=== PATIENT | male | born 1970 | race Caucasian/White ===

== ENCOUNTER → 2020-09-02 16:17 | Outpatient (BNVA) | payer OTHER, SELFPAY | PROVIDERS: PCP Nurse Practitioner Family; Visit Provider Anesthesiology | DX: M47.812 Spondylosis without myelopathy or radiculopathy, cervical region (principal); M54.12 Radiculopathy, cervical region; G89.4 Chronic pain syndrome | CPT/HCPCS: 99212 ==

== ENCOUNTER 2024-11-21 08:38 | Outpatient (AMB) | payer OTHER, SELFPAY ==
--- NOTE | 2024-11-21 09:11 | MHC.OFFVIS ---
Vital Signs 11/21/24 09:12 Weight 296 lb BP 157/74 H Blood Pressure Location Rt brachial Position Sitting Pulse 113 H Pulse Source Pulse Oximeter Pulse Oximetry (%) 98 Oxygen Delivery Method Room Air Intake Visit Reasons: Stimulator problems/Veren[employer] from [employer] Specialist Required: No Allergies duloxetine [From CYMBALTA] Allergy (Severe, Unverified 11/21/24 09:11) DIZZINESS - PASSED OUT latex [Latex] Allergy (Severe, Unverified 11/21/24 09:11) SWELLING,SOB,RASH methotrexate [METHOTREXATE] Allergy (Severe, Unverified 11/21/24 09:11) PANCREATIC DAMAGE oxcarbazepine [From TRILEPTAL] Allergy (Severe, Unverified 11/21/24 09:11) NA LEVELS DROPPED beeswax [BEESWAX] Allergy (Intermediate, Unverified 11/21/24 09:11) SWELLING, DIFFICULTY BREATHING lamotrigine [From Lamictal] Allergy (Intermediate, Unverified 11/21/24 09:11) OPEN OOZING RASH tiotropium [From SPIRIVA WITH HANDIHALER] Allergy (Intermediate, Unverified 11/21/24 09:11) INFLAMMATION OF PROSTATE sertraline [From ZOLOFT] Allergy (Unknown, Unverified 11/21/24 09:11) UNKNOWN bee sting Allergy (Unknown, Uncoded 11/21/24 09:11) anaphylaxis Latex Allergy (Unknown, Uncoded 11/21/24 09:11) swelling, breathing problems Latex Gloves Allergy (Unknown, Uncoded 11/21/24 09:11) Rash,Swelling Medication List - Last Reconciled 11/21/24 by Susie Cruz, TIRE [employer]SEMBLER aspirin 81 mg PO DAILY atorvastatin mg PO cyclobenzaprine 10 mg PO TID 30 days hydroxyzine HCl 0 mg PO magnesium oxide 400 mg PO DAILY pantoprazole 40 mg PO DAILY HPI Comments Details: Yamil is in my office after 5 years of absence. This is very unfortunate gentleman who was treated in my office in 2021 with spinal cord stimulator cervical positioned. The patient had 80% or better pain relief at the time of the implantation. He enjoyed significant help from spinal cord stimulation device [employer] until 2021 when he had the stroke. He had prolonged rehab stay after this and spinal cord stimulator was not charged during that time. After that in 2022 he had the COVID his spent long time and I see you in critical condition. He had very low potassium. He had an episode of congestive heart failure in March of 2024. The patient now is getting better and he wants spinal cord stimulator to be restarted. Maryann the congressional representative of the [employer] is was patient today to charge she spinal cord stimulator. I explained to him that due to all this severe and complicated conditions, movement and repositioning of the patient in different medical facilities his spinal cord stimulator leads could have dislodged. I will order him cervical spine x-ray just in case, if spinal cord stimulator is not helping him or if spinal cord stimulator causes stimulation of the anterior spinal cord with muscular stimulation in the arms or shoulders he would need to go for that x-ray. If the device is working for him and he feels as good as he was before he does not need to do anything continue to enjoy and recharge his battery. Prior: had cervical SCS trial done 11/01/19. he had an implant performed on [id number]% pain relief of his neck, shoulder, and arms without medications, and increased QOL and function. His ADL is improved his social interaction is improved his mobility is improved. Today he came in my office with complains on partial coverage. He was recommended to contact [employer] to work with his machine and try to expand the coverage without any interventions. [facility] Medical History (Updated 11/21/24 @ 09:27 by Gokul Cook MD) Chronic pain syndrome Cervical radiculopathy Facet arthropathy, cervical Review of Systems Const All systems reviewed & are unremarkable except as noted in HPI and below ENT Reports Normal hearing present Neuro Reports Normal hearing present, Denies confusion and Denies Sensory deficit (Neuro) Psych Denies confusion Physical Exam Vital Signs: Last Vital Signs Pulse 113 H 11/21/24 09:12 BP 157/74 H 11/21/24 09:12 Pulse Ox 98 11/21/24 09:12 Oxygen Delivery Method Room Air 11/21/24 09:12 Const General: No confusion Orientation/consciousness: No confusion Eyes Pupils: Equal, round and reactive pupils present EOM: EOMs intact bilaterally Neck Neck: No full ROM, Yes no meningeal signs and Yes trachea midline Chest Chest palpation & inspection: normal inspection of the chest Resp Effort & Inspection: normal respiratory effort, able to speak in complete sentences, normal respiratory pattern, no audible wheezes and no cough Cardio Jugular venous distension: no JVD Back/Spine/Pelvis Other: tenderness on palpation in Left paraspinal region cervical spine.. Range of motion is limited with the lateral tilting and lateral rotation of the neck.well-healed surgical scars b/l knees, full hip, knee, ankle ROM, no tenderness, swelling, or redness noted . EXTREMITIES: no clubbing, cyanosis, or edema . Neuro General: no meningeal signs and No confusion Cranial nerves: Yes Equal, round and reactive pupils present and Yes Normal hearing present Sensory Exam: No Sensory deficit (Neuro) Psych Speech and movement: Normal speech and movement present Affect: normal affect Attitude: cooperative Thought process: Normal thought process present Thought content: Normal thought content present Insight: Good insight present (Psych) Judgement: Good judgement present (Psych) Assessment & Plan Assessment & Plan (1) Facet arthropathy, cervical: Code(s): M47.812 - Spondylosis without myelopathy or radiculopathy, cervical region Category: Medical Plan: as below (2) Cervical radiculopathy: Code(s): M54.12 - Radiculopathy, cervical region Category: Medical (3) Chronic pain syndrome: Code(s): G89.4 - Chronic pain syndrome Category: Medical Plan: vvv (4) Spinal cord stimulator dysfunction: Code(s): T85.192A - Other mechanical complication of implanted electronic neurostimulator of spinal cord electrode (lead), initial encounter Category: Medical Plan Plan of care as above. The discussion and medical history is above. If the machine will be charged today and the patient has a good stimulation he does not need to do anything however if he feels problems with spinal cord stimulator 1st step would be to go for cervical spine x-ray. Evaluating cervical spine x-ray will allow me to do revision of spinal cord stimulator for this patient. Orders: Orders XR cervical spine 5V Today G89.4 - Chronic pain syndrome, M47.812 - Spondylosis without myelopathy or radiculopathy, cervical region, M54.12 - Radiculopathy, cervical region, T85.192A - Other mechanical complication of implanted electronic neurostimulator of spinal cord electrode (lead), initial encounter Patient Instructions: I here by testify that I spent 35 minutes in conversation with this patient as well as planning his care and organizing this note. Coding Level of Care Code Est Pt Level 4 (50785) Diagnoses Facet arthropathy, cervical M47.812 Cervical radiculopathy M54.12 Chronic pain syndrome G89.4 Spinal cord stimulator dysfunction T85.192A
[2024-11-21 09:12] VITALS: BP 157/74; PULSE 113; O2SAT 98
== END 2024-11-21 10:16 | disposition home or self-care (01) ==
PROVIDERS: PCP Nurse Practitioner Family; Visit Provider Anesthesiology
DX: M47.812 Spondylosis without myelopathy or radiculopathy, cervical region (principal); M54.12 Radiculopathy, cervical region; G89.4 Chronic pain syndrome; T85.192A Other mechanical complication of implanted electronic neurostimulator of spinal cord electrode (lead), initial encounter
CPT/HCPCS: 99214

== ENCOUNTER → 2024-11-21 08:38 | Outpatient (BNVA) | payer OTHER, SELFPAY | PROVIDERS: PCP Nurse Practitioner Family; Visit Provider Anesthesiology | DX: M47.812 Spondylosis without myelopathy or radiculopathy, cervical region (principal); M54.12 Radiculopathy, cervical region; G89.4 Chronic pain syndrome; T85.192A Other mechanical complication of implanted electronic neurostimulator of spinal cord electrode (lead), initial encounter; X58.XXXA Exposure to other specified factors, initial encounter; Y93.9 Activity, unspecified; Y92.9 Unspecified place or not applicable; Y99.9 Unspecified external cause status | CPT/HCPCS: 99212 ==